=== PATIENT | female | born 1995 | race Caucasian/White ===

== ENCOUNTER 2017-09-30 13:43 | Inpatient (IN) | payer SELFPAY ==
[2017-09-30 14:27] LABS: PLATELET COUNT 264 10^3/uL (150-400)
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
[2017-09-30] MEDS ORDERED: LORazepam 0.5 MG TAB PO PRN (22:14)
[2017-09-30] MEDS ORDERED: ACETAMINOPHEN 325 MG TAB PO PRN (22:14)
[2017-09-30] MEDS ORDERED: MAG HYDROX/AL HYDROX/SIMETH 30 ML UDCUP PO PRN (22:15)
[2017-09-30] MEDS ORDERED: MAGNESIUM HYDROXIDE 30 ML UDCUP PO PRN (22:16)
[2017-10-01] MEDS ORDERED: PNEUMOCOCCAL 0.5ML VACCINE VIAL IM ONE (13:07)
[2017-10-01] MEDS: ARIPiprazole 10 MG TAB PO SCH (13:29)
[2017-10-01] MEDS ORDERED: ALBUTEROL 60 PUFFS/8 GM MDI IH PRN (15:01)
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
[2017-10-01] MEDS: PRAZOSIN HCL 1 MG CAP PO SCH (20:47)
--- NOTE | 2017-10-01 21:16 | BCON ---
[f rep st] BEHAVIORAL HEALTH CONSULTATION INTERNAL MEDICINE CONSULTATION DATE OF CONSULTATION: 10/01/2017 REFERRING PHYSICIAN: Lux Higgins MD REASON FOR REFERRAL: Medical clearance for inpatient behavioral health stay. HISTORY OF PRESENT ILLNESS: This patient was brought to the emergency department by her mother after expressing suicidal ideation and making a suicidal gesture. She was evaluated by the emergency department and admitted for further psychiatric care. She currently is without any medical complaints. PAST MEDICAL HISTORY: 1. Iron-deficiency anemia. 2. Asthma. 3. Possible bipolar disorder versus PTSD. PAST SURGICAL HISTORY: She has never had any surgeries. MEDICATIONS: 1. She reports that she had been prescribed QVAR inhaler, but had not been using it. 2. Nexplanon implanted control. 3. Multivitamin with iron p.r.n. ALLERGIES: There is an allergy listed to morphine. SOCIAL HISTORY: She is and lives with her and a roommate. She works part-time. She is a smoker. She uses rare alcohol and she is a regular marijuana user. REVIEW OF SYSTEMS: She reports recent intentional weight loss. She denies fevers or chills, cough or dyspnea, nausea, vomiting, constipation, or diarrhea , dysuria or urinary frequency. Otherwise, a 10-point review of systems is negative. PHYSICAL EXAM: VITAL SIGNS: Blood pressure is 113/68, heart rate is 98, respiratory rate is 14, oxygen saturation is 95% on room air, temperature is 36.6 degrees centigrade. Her weight is 59.9 kg for a body mass index of 24.1. GENERAL: This is a well-nourished, well-developed woman, cooperative, in no acute distress. Appears her chronologic age. HEENT: Extraocular movements are intact. Pupils are equal, round, reactive to light. Mucous membranes are moist. Dentition is in good condition. She has an uncrowded airway, Mallampati class 1. There was no posterior oropharyngeal mucus and no mucosal lesions seen. NECK: Supple. HEART: Regular rate and rhythm with no murmurs, rubs, or gallops. LUNGS: Clear to auscultation bilaterally. ABDOMEN: Benign. NEUROLOGIC: She is alert and oriented x3. Cranial nerves 2-12 are grossly intact. There is no focal weakness. Sensation is intact to light touch and gait is within normal limits. LABORATORY STUDIES: Drawn yesterday in the emergency room: CBC showed an elevated hemoglobin and hematocrit at 16.5 in 48.1, otherwise was overall within normal limits. Serum chemistry showed a slightly elevated sodium at 146. She had an anion gap of 18. Otherwise renal function and electrolytes were normal. Beta hCG was negative for . Toxicology screen in the serum was negative for ethyl alcohol and in the urine was non-negative for marijuana, but otherwise negative for substances of abuse. ASSESSMENT/RECOMMENDATIONS: 1. Asthma, asymptomatic at present. I will order an albuterol inhaler in case she has any development of symptoms. 2. Tobacco dependence syndrome. Encouraged smoking cessation. 3. History of iron deficiency anemia. She is currently not iron deficient, and shows some potential hemoconcentration. Red cell indices are not consistent with iron deficiency. No further evaluation or treatment is indicated. /[id number]/MODL MTDD
[2017-10-02] MEDS: ARIPiprazole 10 MG TAB PO SCH (08:07)
--- NOTE | 2017-10-02 11:21 | SOAPPROG ---
SOAP Progress Note Assessment/Plan: Assessment: Bipolar II, mild, depressed, with anxious distress. PTSD. Patient is showing some improvement. (see subjective and objective) Currently denies SI. Patient reports and presents anxious. Patient could benefit from continued inpatient hospitalization for crisis stabilization, safety, and medication evaluation. Plan: Review psychotropic medication treatment informed consent and recommendations. After reviewing risk and benefits, patient agrees to continue medications with the following changes. Medication changes include start trial of Trazodone 50- 100 mg po QHS, and monitor closely for activation of gregg symptoms; start Gabapentin 300 mg po TID for anxiety, and Vistaril 50 mg po Q6HRS PRN for anxiety. No other medication changes at this time as more time is needed to determine ongoing tolerability and efficacy. Plan is to continue to observe patient for response and side effects from medications, and ongoing monitoring and evaluation. Next steps are for patient to meet with managed care coordinator to plan a safe discharge plan and establish outpatient services for ongoing treatment. Consider discharge on Saturday if patient is in stable condition, safe, and has a safe discharge plan. PSYCHOTROPIC MEDICATION TREATMENT INFORMED CONSENT and RECOMMENDATIONS: Review nature of condition, diagnosis, and prognosis. Review nature and purpose of psychotropic medication treatment. Review type of psychotropic medications being ordered. Review risk and benefits of psychotropic medication treatment. Review probable length of time patient will need to take medications. Review risk and benefits of not undergoing psychotropic medication treatment. Review alternative treatments to psychotropic medications. Review psychotropic medications contraindications, drug-drug interactions, side effects, and importance of reporting any side effects to a psychiatric provider or nurse during inpatient hospitalization, and upon discharge to patients psychiatric outpatient provider, primary care provider, or other health personal care service provider. Review importance of asking a nurse, psychiatric provider, or primary care provider any questions or problems concerning the psychotropic medications. Verify patient understands the information that has been provided, and understands, accepts, and agrees to psychotropic medications. Review patients safety plan and importance of patient to report to staff while hospitalized if patient is ever a danger to self/others, or unable to care for self, and upon discharge, the importance for patient to contact [facility] or [facility], or go to the nearest emergency room, if patient is ever a danger to self/others, or unable to care for self. Recommend that upon discharge patient establish medication management treatment with a psychiatric provider, establishes routine therapy appointments, and follow-up with primary care provider. Verify patient understands and agrees to these recommendations. 10/02/17 11:20 Subjective: Following up with patient for evaluation of mood and safety. Patient states, Not sure if the medication works this quickly; however, I already feel like my mood is improvingdont feel any of the lows I was feeling when I was first admitted. Patient reports she is taking her medications as prescribed, is tolerating medications with no report of SEs, is attending groups, eating meals , and reports no SI/HI, and expresses no symptoms of gregg at this time. Patient reports she feels anxious and this is typically for her as she feels anxious all the time; reports he palms even get sweaty like they are right now. Patient reports she only slept one hour last night, and states she uses MJ at home every night for sleep. Patient also reports she has a different sleep schedule than here at the hospital. Patient reports she typically goes to bed at 4am and wakes up at noon or 1pm. Patient reports concern for gaining weight on medications, and requests medications with the least amount of weight gain as a side effect. Objective: Vital Signs Temp Pulse Resp BP Pulse Ox 36.6 C 102 H 14 122/69 H 97 10/02/17 06:00 10/02/17 06:00 10/02/17 06:00 10/02/17 06:00 10/02/17 06:00 Consulted with treatment team staff for update on patients progress in treatment. Nursing reports patient is engaged in her treatment, is taking medications as prescribed, denies SI, eating meals, is attending groups, and is tolerating medications with no report of side effects. Symptoms noted: anxiety. Patient did report lack of sleep last night, and will continue to monitor to determine if decreased need for sleep related to bipolar disorder or due to other factors such as patient uses MJ for sleep at home and patients sleep schedule is typically 4am-1pm. No psychiatric complaints are expressed. Patient shows slight treatment response as of today. Patient is currently improving, tolerating medications with no reports of side effects, and with fair response for symptoms. The patient presents dressed in hospital garb and with good hygiene, and looks stated age. Patient is sitting, posture is upright, and position is relaxed. Patient appears awake, alert, and responds appropriately and reasonably during interview. Patient is engaged, relates well to interviewer, and emotional facial expression is appropriate to situation and changes appropriately with topic. Patient is cooperative, makes comfortable eye contact, and movements are voluntary, deliberate, coordinated, and smooth and even with no inappropriate movements. Patient makes laryngeal sounds effortlessly and shares conversation appropriately; pace of conversation is appropriate, and stream of talking is fluent; articulation is clear and understandable; word choice is effortless and appropriate for education level; completes sentences, occasionally pausing to think; rate and volume are appropriate for interview and setting. Patient reports mood as anxious. Patients affect is stable with full variable range, congruent with mood, and appropriate to speech and circumstances. Patient has linear and logical thinking, with no loose associations, tangential thought, thought blocking, concrete thinking, or any other signs of formal thought disorder. Patient denies suicidal and homicidal ideation, and denies hallucinations and delusions. Patient appears to be a reliable historian with sound judgement and good insight into current condition. Patient has no apparent dysfunction in recent or remote memory noted , and no evidence of gross cognitive dysfunction noted at any point during the interview. - Time Spent With Patient Time Spent With Patient: 30 minutes, met with patient individually. - Pending Discharge Pending Discharge Within 24 Hours: No Pending Discharge Within 48 Hours: Yes Pending Discharge Date: 10/04/17 Pending Discharge Time: 11:00 ICD10 Worksheet Patient Problems: Problems Problem Status Onset Cannabis use disorder, moderate, in controlled environment Acute Post traumatic stress disorder (PTSD) Acute Bipolar II disorder, mild, depressed, with anxious distress Acute Situational depression Acute Suicidal ideation Acute
[2017-10-02] MEDS: hydrOXYzine HCL 50 MG TAB PO PRN (12:24)
[2017-10-02] MEDS: GABAPENTIN 300 MG CAP PO SCH ×2 (16:11→21:38)
[2017-10-02] MEDS: NICOTINE POLACRILEX 2 MG GUM B PRN (18:46)
[2017-10-02] MEDS: PRAZOSIN HCL 1 MG CAP PO SCH (21:35)
[2017-10-02] MEDS: traZODone 50 MG TAB PO SCH ×2 (21:36→22:36)
[2017-10-03] MEDS: ARIPiprazole 10 MG TAB PO SCH (08:01)
[2017-10-03] MEDS: GABAPENTIN 300 MG CAP PO SCH ×3 (08:01→21:28)
--- NOTE | 2017-10-03 12:03 | SOAPPROG ---
SOAP Progress Note Assessment/Plan: Assessment: Bipolar II, mild, depressed, with anxious distress. PTSD. Patient continues to show improvement. (see subjective and objective) Currently denies SI. Patient could benefit from continued inpatient hospitalization for crisis stabilization, safety, and medication evaluation. Patient recent suicidal threat likely due to mood instability exacerbated by ETOH use. Plan: Review psychotropic medication treatment informed consent and recommendations. After reviewing risk and benefits, patient agrees to continue medications with the following changes. Medication changes include increasing Trazodone to 100 mg po QHS. No other medication changes at this time as more time is needed to determine ongoing tolerability and efficacy. Plan is to continue to observe patient for response and side effects from medications, and ongoing monitoring and evaluation. Next steps are for patient to meet with intensive care ambulance paramedic to plan a safe discharge plan and establish outpatient services for ongoing treatment. Consider discharge Saturday afternoon if patient is in stable condition, safe, and has a safe discharge plan. Plan to meet with patient and patients mother prior to discharge tomorrow. PSYCHOTROPIC MEDICATION TREATMENT INFORMED CONSENT and RECOMMENDATIONS: Review nature of condition, diagnosis, and prognosis. Review nature and purpose of psychotropic medication treatment. Review type of psychotropic medications being ordered. Review risk and benefits of psychotropic medication treatment. Review probable length of time patient will need to take medications. Review risk and benefits of not undergoing psychotropic medication treatment. Review alternative treatments to psychotropic medications. Review psychotropic medications contraindications, drug-drug interactions, side effects, and importance of reporting any side effects to a psychiatric provider or nurse during inpatient hospitalization, and upon discharge to patients psychiatric outpatient provider, primary care provider, or other health day care center director. Review importance of asking a nurse, psychiatric provider, or primary care provider any questions or problems concerning the psychotropic medications. Verify patient understands the information that has been provided, and understands, accepts, and agrees to psychotropic medications. Review patients safety plan and importance of patient to report to staff while hospitalized if patient is ever a danger to self/others, or unable to care for self, and upon discharge, the importance for patient to contact [facility] or [facility], or go to the nearest emergency room, if patient is ever a danger to self/others, or unable to care for self. Recommend that upon discharge patient establish medication management treatment with a psychiatric provider, establishes routine therapy appointments, and follow-up with primary care provider. Verify patient understands and agrees to these recommendations. 06/07/18 12:01 Subjective: Following up with patient for evaluation of mood and safety. Patient states, Slept really good last night after taking second dose of Trazodone, and not feeling as anxiousdefinitely have improved. Patient reports she is taking her medications as prescribed, is tolerating medications with no report of SEs, is attending groups, eating meals, and reports no SI/HI, and expresses no psychiatric symptoms at this time. Patient requests to discharge tomorrow as she has improved and her plan is for her mother to pick her up at discharge. Patient states she plans to return home with her . Patient reports no nightmares. Objective: Vital Signs Temp Pulse Resp BP Pulse Ox 36.7 C 100 16 125/72 H 96 10/03/17 06:00 10/03/17 06:00 10/03/17 06:00 10/03/17 06:00 10/03/17 06:00 Consulted with treatment team staff for update on patients progress in treatment. Nursing reports patient is engaged in her treatment, is taking medications as prescribed, denies SI, eating meals, is attending groups, and is tolerating medications with no report of side effects. Nurses reports psychiatric signs noted and patient has expressed no psychiatric symptoms over the last 24 hours. Nurses report patient requested second Trazodone 50 mg po QHS thirty minutes after first dose, and patient slept well with 8 hours of sleep. Nurses report patient is stable and agree with plan for patient to discharge tomorrow afternoon. Symptoms noted: mild anxiety. No psychiatric complaints are expressed. Patient is currently improving, tolerating medications with no reports of side effects, and with fair response for symptoms, denies SI and self-injurious ideation The patient presents dressed in hospital garb and with good hygiene, and looks stated age. Patient is sitting, posture is upright, and position is relaxed. Patient appears awake, alert, and responds appropriately and reasonably during interview. Patient is engaged, relates well to interviewer, and emotional facial expression is appropriate to situation and changes appropriately with topic. Patient is cooperative, makes comfortable eye contact, and movements are voluntary, deliberate, coordinated, and smooth and even with no inappropriate movements. Patient makes laryngeal sounds effortlessly and shares conversation appropriately; pace of conversation is appropriate, and stream of talking is fluent; articulation is clear and understandable; word choice is effortless and appropriate for education level; completes sentences, occasionally pausing to think; rate and volume are appropriate for interview and setting. Patient reports mood as euthymic. Patients affect is stable, with mild anxiousness, with full variable range, congruent with mood, and appropriate to speech and circumstances. Patient has linear and logical thinking, with no loose associations, tangential thought, thought blocking, concrete thinking, or any other signs of formal thought disorder. Patient denies suicidal and homicidal ideation, and denies hallucinations and delusions. Patient appears to be a reliable historian with sound judgement and good insight into current condition. Patient has no apparent dysfunction in recent or remote memory noted, and no evidence of gross cognitive dysfunction noted at any point during the interview. - Time Spent With Patient Time Spent With Patient: 30 minutes, met with patient individually. - Pending Discharge Pending Discharge Within 24 Hours: Yes Pending Discharge Within 48 Hours: No Pending Discharge Date: 10/04/17 Pending Discharge Time: 12:00 ICD10 Worksheet Patient Problems: Problems Problem Status Onset Bipolar II disorder, mild, depressed, with anxious distress Acute Cannabis use disorder, moderate, in controlled environment Acute Post traumatic stress disorder (PTSD) Acute Situational depression Acute Suicidal ideation Acute
[2017-10-03] MEDS: hydrOXYzine HCL 50 MG TAB PO PRN (13:54)
[2017-10-03] MEDS: NICOTINE POLACRILEX 2 MG GUM B PRN (15:50)
[2017-10-03] MEDS ORDERED: traZODone 100 MG TAB PO SCH (21:00)
[2017-10-03] MEDS: PRAZOSIN HCL 1 MG CAP PO SCH (21:28)
[2017-10-04 06:11] VITALS: BP 116/65
[2017-10-04] MEDS: ARIPiprazole 10 MG TAB PO SCH (08:11)
[2017-10-04] MEDS: GABAPENTIN 300 MG CAP PO SCH (08:11)
[2017-10-04] MEDS: hydrOXYzine HCL 50 MG TAB PO PRN (11:00)
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
== END 2017-10-04 13:02 | disposition home or self-care (01) | DRG 885 ==
LOC: BBEH 21:50
PROVIDERS: ADMIT Psychiatry & Neurology Psychiatry; ATTEND Psychiatry & Neurology Psychiatry
DX: F31.81 Bipolar II disorder (principal); F43.10 Post-traumatic stress disorder, unspecified; J45.909 Unspecified asthma, uncomplicated; F12.90 Cannabis use, unspecified, uncomplicated; D50.9 Iron deficiency anemia, unspecified
CPT/HCPCS: 80305; G0009; G0480